=== PATIENT | male | born 1950 ===

== ENCOUNTER 2022-04-28 13:06 | Inpatient (IN) | payer MEDICARE ==
[~2022-04-28] VITALS: Ht 180.3 cm; Wt 104.6 kg
[2022-04-28] MEDS ORDERED: Flovent 220 Ora12 GM INH (13:49)
[2022-04-28 14:15] LABS: Albumin, Blood 3.3 g/dL (3.4-5.0); Albumin/Globulin Ratio 0.9 (0.8-1.8); Bun/Creatinine Ratio 18.8 (12.0-20.0); Calcium, Blood 8.7 mg/dL (8.5-10.1); Creatinine, Blood 1.17 mg/dL (0.60-1.20); Globulin, Blood 3.5 g/dL (2.2-4.0); Potassium, Blood 4.6 mmol/L (3.5-5.5); Total Protein, Blood 6.8 g/dL (6.4-8.2)
[2022-04-28 14:26] LABS: BASOPHILS ABSOLUTE AUTO 0.05 K/mm3 (0.00-0.23); BASOPHILS PERCENT AUTO 1 % (0-2); EOSINOPHILS ABSOLUTE AUTO 0.07 K/mm3 (0.00-0.68); EOSINOPHILS PERCENT AUTO 1 % (0-6); Hematocrit 46.4 % (37.0-53.0); Hemoglobin 14.9 g/dL (13.5-17.5); IMMATURE GRAN ABSOLUTE AUTO 0.02 K/mm3 (0.00-0.10); IMMATURE GRAN PERCENT AUTO 0 % (0-1); LYMPHOCYTES PERCENT AUTO 10 % (21-46); MONOCYTES ABSOLUTE AUTO 0.85 K/mm3 (0.16-1.47); MONOCYTES PERCENT AUTO 10 % (4-13); Mean Corpuscular HGB 29.6 pg (26.0-34.0); Mean Corpuscular HGB Conc 32.1 g/dL (31.5-36.5); Mean Corpuscular Volume 92 fL (80-100); NEUTROPHILS ABSOLUTE AUTO 6.66 K/mm3 (1.96-9.15); NEUTROPHILS PERCENT AUTO 79 % (41-73); Platelet Count 163 K/mm3 (150-400); RDW Coefficient Variation 16.5 % (11.7-14.2); RDW Standard Deviation 55.8 fL (35.1-46.3); Red Blood Cell Count 5.04 M/mm3 (4.30-5.90); White Blood Cell Count 8.45 K/mm3 (4.00-11.30)
--- NOTE | 2022-04-28 18:37 | NUR ---
ARRIVAL TO PCU/SHIFT SUMMARY' PATIENT ARRIVED TO PCU AT 1724 FROM ED AND TRANSFERD TO PCU BED INDEPENDTLY. PATIENT IS ALERT AND ORIENRTED X4. PERRLA. NEURO INTACT. PATIENT REPORTS NO PAIN. PATINET REPROTS NO CHEST PAIN/PRESSURE. STRONG RADIAL PULSES AND PEDIS. +3EDEMA IN LOWER EXTREMITIES BILATERALLY AND GENERALIZED ANASCARA. PATIENT REPROTS NO SHORTNESS OF BREATH. CLEAR LUNG SOUNDS. PATIENT ABD IS FIRM NONTENDER AND HYPOACTIVE. PATIENT HAS NO ISSUES VOIDING. PATIENT IS INDEPDENT IN THE ROOM AND THIS RN EDUCATED HOW TO WALK WITH IV POLE AND TO CALL IF NEEDING ASSISTANCE OR FEELING LIGHTHEADED/DIZZY. PATIENT HAS WOUNDS TO LEFT MCCORD. PICTURES IN CHART. CALCIUM ALGINATE ON WOUNDS AND SMALL MEPILEX ON OVER TOP. CLEANED WITH CLEANING SPRAY. WOUNDS ARE WEEPING. RIGHT MCCORD HAS REDDNESS TO IT. THIS RN ORIENTED PATIENT TO THE ROOM, CALL LIGHT AND HOW OFTEN VITAL SIGNS WILL BE TAKEN. PATIENT VERABLIZED UDNERSTANDING. THIS RN EDUCATED THE PATIENT ON THE PLAN OF CARE OF CONTROLING HIS RATE WITH MEDICATIONS AND DUIRSING HIM TO HELP WITH THE FLUID OVERLOAD. PATIENT VERABLIZED UNDERSTANDING AND ASKED QUESTIONS. PATIENT EATING DINNER IN ROOM. CALL LIGHT WITHIN REACH AND BED IN LOWEST POSITION. WILL CONITNUE TO MONITOR AND PROVIDE CARE UNTIL HAND OFF WITH NEXT SHIFT.
[2022-04-29 04:26] LABS: BASOPHILS ABSOLUTE AUTO 0.05 K/mm3 (0.00-0.23); BASOPHILS PERCENT AUTO 1 % (0-2); EOSINOPHILS ABSOLUTE AUTO 0.06 K/mm3 (0.00-0.68); EOSINOPHILS PERCENT AUTO 1 % (0-6); Hematocrit 44.3 % (37.0-53.0); Hemoglobin 14.1 g/dL (13.5-17.5); IMMATURE GRAN ABSOLUTE AUTO 0.04 K/mm3 (0.00-0.10); IMMATURE GRAN PERCENT AUTO 0 % (0-1); LYMPHOCYTES ABSOLUTE AUTO 0.87 K/mm3 (0.84-5.20); LYMPHOCYTES PERCENT AUTO 10 % (21-46); MONOCYTES ABSOLUTE AUTO 1.12 K/mm3 (0.16-1.47); MONOCYTES PERCENT AUTO 12 % (4-13); Mean Corpuscular HGB 29.3 pg (26.0-34.0); Mean Corpuscular HGB Conc 31.8 g/dL (31.5-36.5); Mean Corpuscular Volume 92 fL (80-100); Mean Platelet Volume 11.7 fL (9.1-12.4); NEUTROPHILS ABSOLUTE AUTO 6.98 K/mm3 (1.96-9.15); NEUTROPHILS PERCENT AUTO 77 % (41-73); Platelet Count 162 K/mm3 (150-400); RDW Coefficient Variation 16.4 % (11.7-14.2); RDW Standard Deviation 56.1 fL (35.1-46.3); Red Blood Cell Count 4.81 M/mm3 (4.30-5.90); White Blood Cell Count 9.12 K/mm3 (4.00-11.30)
[2022-04-29 04:47] LABS: Albumin, Blood 3.1 g/dL (3.4-5.0); Albumin/Globulin Ratio 0.9 (0.8-1.8); Bilirubin, Total 3.2 mg/dL (0.1-1.0); Bun/Creatinine Ratio 15.5 (12.0-20.0); Calcium, Blood 8.9 mg/dL (8.5-10.1); Creatinine, Blood 1.48 mg/dL (0.60-1.20); Globulin, Blood 3.5 g/dL (2.2-4.0); Magnesium, Blood 2.2 mg/dL (1.6-2.4); Potassium, Blood 4.5 mmol/L (3.5-5.5); Total Protein, Blood 6.6 g/dL (6.4-8.2)
--- NOTE | 2022-04-29 06:44 | NUR ---
NOC SHIFT SUMMARY PT ORIENTED X4 OVERNIGHT. CARDIZEM GTT ON AT START OF SHIFT AND TURNED OFF @ APPROXIMATELY 0200 DUE TO SUSTAINING BELOW 100BPM CONSISTENTLY ON LOWEST DOSE FOR 2 HOURS PER WRITTEN ORDER. IV LASIX GIVEN AT START OF SHIFT WITH 2400ML OUT THIS SHIFT. NO COMPLAINTS OF PAIN OR DISCOMFORT, PT REPORTS IMPROVEMENT IN SWELLING AND BREATHING. WILL CONTINUE TO MONITOR AND PASS ON TO DAY RN
--- NOTE | 2022-04-29 08:00 | NUR ---
PT QUITE PLEASANT DENIES PAIN. A/O X3. H/R REG, NO MURMUR NOTED. PER TELE AFIB 100-110. LUNGS DIM IN BASES BILAT. RESP EASY UNLABORED. ON R.A. BT X4 LAST B/M YEST PER PT ABD FIRM, NONTENDER. VOIDS URINAL AND SBA TO BATHROOM. BLE +3 EDEMA. NO OTHER CONCERNS NOTED. BED IN LOW POSITION, CALL LITEIN REACH, CALLS APPROP
--- NOTE | 2022-04-29 12:13 | NUR ---
CALLED DR GUZMAN RE BP AT 1140 AND 1145. 90/66 AND 106/87. OKAYED GIVE BOTH KATLIN AND MINDA
--- NOTE | 2022-04-29 17:41 | NUR ---
PT HAS BEEN QUITE PLEASANT TODAY. NO C/O PAIN. FAMILY IN TO SEE TODAY. DR MOVED TO MEDICAL STATUS WITH TELE. PT HAS BEEN PLACED ON 1200 CC FLUID RESTRICTION. PT HAS BEEN TOLERATING CARDIZEM PO TODAY. NO NEW CONCERNS NOTED TODAY. BED IN LOW POSITION, CALL LITE IN REACH, CALLS APPROP
--- NOTE | 2022-04-29 21:55 | NUR ---
PATIENT TRANSFERRED TO MEDICAL UNIT ROOM 301. REPORT GIVEN TO HAILEY DUARTE. TRANSPORTED VIA WHEELCHAIR BY THIS RN WITHOUT INCIDENT.
--- NOTE | 2022-04-30 02:34 | NUR ---
SHIFT SUMMARY; PATIENT ARRIVED FROM PCU EARLY THIS EVENING. HE CAME VIA WHEEL CHAIR. TRANSFERS INDEPENDANTLY TO BED. TIMTENT AO X 4 AND HAS PLEASANT AFFECT. PATIENT HAS BEEN COOPERATIVE WITH CARE DURING NOC SHIFT. HE TAKES HIS MEDICATIONS WHOLE WITH WATER. HIS LUNGS ARE CLEAR AT THIS TIME. HE IS ON A 1200ML WATER RESTRICTION. PER TIRE TRIMMER HAND HIS RITE AT 0005 WAS 108 AFIB WITH SOME INTERMITTENT PVC'S NOTED. SAILAJA IS ASYMPTOMATIC. HIS BLOOD PRESSURE IS SOFT AT 105 SYSTOLIC. HE IS AFEBRILE AT 98.2 TEMPORALY, AND IS 95% ON ROOM AIR. WILL CONTINUE TO MONITOR THIS PATIENT CLOSELY UNTIL HAND OFF AT SHIFT CHANGE TO DAY SHIFT RN.
[2022-04-30 09:41] LABS: Calcium, Blood 8.5 mg/dL (8.5-10.1); Creatinine, Blood 1.37 mg/dL (0.60-1.20); Magnesium, Blood 2.1 mg/dL (1.6-2.4); Potassium, Blood 4.1 mmol/L (3.5-5.5)
--- NOTE | 2022-04-30 15:13 | NUR ---
Pt resting in bed and is A&O. Pt denies pain and dyspnea at this time. Pt reports feeling better and plan is to D/C home tomorrow. Pt reports never being and has no children. Pt does report having a girlfriend and her 2 sons living at home with him. He reports adequate support at home. Engaged in therapeutic discussion regarding advanced care planning. Gentle education on disease process including trajectory. Discussed the importance of complying with recommendations and to have routine conversations with PCP regarding disease process. Discussed Advanced Directives with Pt being in agreement to take home to complete. Educated on each section to complete and the importance of consider appointing a healthcare dental detail representative. Pt expresses appreciation and reports no other concerns at this time. Palliative Care will remain available.
--- NOTE | 2022-05-01 05:27 | NUR ---
Rn summary: Patient is alert and oriented. He is able to walk to the BR independantly and is steady on his feet. Patient tele is Afib with HR in the low 100's most of the time. HR does increase when pt up to BR. Pt has had 2 episodes of 5-6 beat V-Tach this shift, also had a feq on days. Pt sleeping, asymptomatic. Pt has wounds to upper left calf with mepilex drsgs, changed on day shift. Pt has a large fluid filled blister on the inner/underside of left calf. Dry drsg and kerlex applied to protect blister and obsorb fluid if it breaks. Blister was present on days, it is about 3 inches by 2 inches. Plan is for pt to possibly DC home today. Call light in reach. Will continue to monitor.
[2022-05-01 05:33] LABS: BASOPHILS ABSOLUTE AUTO 0.02 K/mm3 (0.00-0.23); BASOPHILS PERCENT AUTO 0 % (0-2); EOSINOPHILS ABSOLUTE AUTO 0.02 K/mm3 (0.00-0.68); EOSINOPHILS PERCENT AUTO 0 % (0-6); Hematocrit 42.6 % (37.0-53.0); Hemoglobin 13.8 g/dL (13.5-17.5); IMMATURE GRAN ABSOLUTE AUTO 0.06 K/mm3 (0.00-0.10); IMMATURE GRAN PERCENT AUTO 1 % (0-1); LYMPHOCYTES PERCENT AUTO 5 % (21-46); MONOCYTES ABSOLUTE AUTO 1.22 K/mm3 (0.16-1.47); MONOCYTES PERCENT AUTO 10 % (4-13); Mean Corpuscular HGB 29.6 pg (26.0-34.0); Mean Corpuscular HGB Conc 32.4 g/dL (31.5-36.5); Mean Corpuscular Volume 91 fL (80-100); Mean Platelet Volume 12.7 fL (9.1-12.4); NEUTROPHILS ABSOLUTE AUTO 10.39 K/mm3 (1.96-9.15); NEUTROPHILS PERCENT AUTO 84 % (41-73); Platelet Count 149 K/mm3 (150-400); RDW Coefficient Variation 16.5 % (11.7-14.2); Red Blood Cell Count 4.67 M/mm3 (4.30-5.90); White Blood Cell Count 12.31 K/mm3 (4.00-11.30)
[2022-05-01 05:51] LABS: Bun/Creatinine Ratio 20.2 (12.0-20.0); Calcium, Blood 8.4 mg/dL (8.5-10.1); Creatinine, Blood 1.29 mg/dL (0.60-1.20); Magnesium, Blood 1.9 mg/dL (1.6-2.4); Phosphorus, Blood 3.5 mg/dL (2.5-4.9); Potassium, Blood 3.4 mmol/L (3.5-5.5)
--- NOTE | 2022-05-01 12:19 | NUR ---
1000 DR ESTES CALLED. STATES TO KEEP LISINOPRIL - EVEN THOUGH STATES STOP, NOT GIVE ENTRESO, WATCH FOR MISTAKE ORDERS. GIVE K+ FIRST. THEN, WAIT ONE HOUR AFTER, GIVE THE DIGOXINE. NOT BEFORE. DONE. HEART RATE AT TIME OF DIGOXINE START IS 103, AFTER IS 113 PER TELE
--- NOTE | 2022-05-01 13:14 | NUR ---
Spiritual care visit conducted. Pt is lying in bed and alert. Pt imediately talks about his spiritual views, his beliefs about the book of Revelation in the Bible and his thoughts about the end times. Pt then shares personal information about his past and why his sylvester is so important to him today. He discusses his frustrations about healing and the meaning of suffering. I normalize his inner conflict, hear confession, and provide therapeutic listening, theological insights anbd prayer. Pt responds well and shows signs of catharsis and increased peace. I will continue to remain available to pt and family.
--- NOTE | 2022-05-01 18:10 | NUR ---
PT PLEASANT TODAY. DENIES CHEST PAIN OR PRESSURE, WAS EVALUATED BY CARDIO. NEW MEDS STARTED. ALSO DIGOXIN IV AT INTERVALS. PT CONTINUES TO BE IN LOW 100 RATE. NO OTHER CONCERNS NOTED. EXPECTING D/C TOMORROW IF RATE CONTROLLED. BED IN LOW POSITOIN, CALL LITE IN REACH, CALLS APPROP
[2022-05-02 04:33] LABS: BASOPHILS ABSOLUTE AUTO 0.02 K/mm3 (0.00-0.23); BASOPHILS PERCENT AUTO 0 % (0-2); EOSINOPHILS ABSOLUTE AUTO 0.04 K/mm3 (0.00-0.68); EOSINOPHILS PERCENT AUTO 0 % (0-6); Hemoglobin 15.1 g/dL (13.5-17.5); IMMATURE GRAN ABSOLUTE AUTO 0.03 K/mm3 (0.00-0.10); IMMATURE GRAN PERCENT AUTO 0 % (0-1); LYMPHOCYTES ABSOLUTE AUTO 0.67 K/mm3 (0.84-5.20); LYMPHOCYTES PERCENT AUTO 6 % (21-46); MONOCYTES ABSOLUTE AUTO 1.13 K/mm3 (0.16-1.47); MONOCYTES PERCENT AUTO 11 % (4-13); Mean Corpuscular HGB 29.4 pg (26.0-34.0); Mean Corpuscular HGB Conc 32.1 g/dL (31.5-36.5); Mean Corpuscular Volume 91 fL (80-100); Mean Platelet Volume 11.5 fL (9.1-12.4); NEUTROPHILS ABSOLUTE AUTO 8.87 K/mm3 (1.96-9.15); NEUTROPHILS PERCENT AUTO 82 % (41-73); Platelet Count 160 K/mm3 (150-400); RDW Coefficient Variation 16.1 % (11.7-14.2); RDW Standard Deviation 54.6 fL (35.1-46.3); Red Blood Cell Count 5.14 M/mm3 (4.30-5.90); White Blood Cell Count 10.76 K/mm3 (4.00-11.30)
[2022-05-02 05:09] LABS: Bun/Creatinine Ratio 18.5 (12.0-20.0); Calcium, Blood 8.7 mg/dL (8.5-10.1); Creatinine, Blood 1.35 mg/dL (0.60-1.20); Magnesium, Blood 2.2 mg/dL (1.6-2.4); Potassium, Blood 3.6 mmol/L (3.5-5.5)
--- NOTE | 2022-05-02 06:01 | NUR ---
RN Summary: Patie;nt is alert and oriented. Patient continues to be up ad courtney in room. Telemetry shows afib with multifocal PVC's rate is at 100 when assessed. No reports of sm runs of vtach tonight. Pt denies pain, has rested well. Again hopes to be discharged home today.
[2022-05-02] MEDS ORDERED: ASPI81CH PO (12:00)
[2022-05-02] MEDS ORDERED: LOSA25 PO (12:02)
[2022-05-02] MEDS ORDERED: JARDIANCE25 MG PO (12:03)
[2022-05-02] MEDS ORDERED: XARELTO20 MG PO (12:04)
[2022-05-02] MEDS ORDERED: METO50ER PO (12:04)
[2022-05-02] MEDS ORDERED: SPIR25 PO (12:05)
--- NOTE | 2022-05-02 13:06 | NUR ---
DISCHARGE PATIENT TRANSPORTED BY WHEELCHAIR TO PRIVATE VEHICLE. DISCHARGE INSTRUCTIONS EXPLAINED TO PATIENT. PATIENT STATED UNDERSTANDING. PACKET SENT WITH PATIENT. BELONGINGS SENT WITH PATIENT. IV REMOVED WITHOUT DIFFICULTY. TELE REMOVED WITHOUT DIFFICULTY. DRESSINGS CHANGED TO BLISTERS ON LEFT LEG. PATIENT EDUCATED ON HOW TO CHANGE DRESSINGS. MEDICATIONS FAXED TO PREFERRED PHARMACY. PATIENT EDUCATED ON NEW MEDS. DR. LOPEZ OFFICE TO CALL PATIENT TO SCHEDULE FOLLOW UP. PATIENT TO CALL PCP TO SCHEDULE FOLLOW UP.
== END 2022-05-02 13:04 | disposition home or self-care (01) | DRG 308 ==
LOC: ER 13:06 → MEDS 15:58 → PCU 15:58 → MEDS 04-29 21:32
PROVIDERS: Internal Medicine Cardiovascular Disease; Student in an Organized Health Care Education/Training Program; ADMIT Family Medicine
DX: I48.19 Other persistent atrial fibrillation (principal); I50.23 Acute on chronic systolic (congestive) heart failure; J91.8 Pleural effusion in other conditions classified elsewhere; N17.9 Acute kidney failure, unspecified; I47.2 Ventricular tachycardia; E87.6 Hypokalemia; J45.20 Mild intermittent asthma, uncomplicated; E66.9 Obesity, unspecified; Z68.37 Body mass index [BMI] 37.0-37.9, adult; Z79.51 Long term (current) use of inhaled steroids
CPT/HCPCS: 36415; 71046; 80048; 80053; 83735; 83880; 84100; 84145; 84443; 84484; 85025; 93005; 93010; 94760; 96374; 96375; 99285-25; A9270; C8929; J1160; J1650; J1940; Q9957